=== PATIENT | male | born 1955 | race Caucasian/White ===

== ENCOUNTER 2021-08-06 08:48 | Day surgery (SDC) | payer MEDICARE ==
[2021-08-04 10:55] VITALS: BMI 23.6
[~2021-08-06 08:48] MED LIST: LACTATED RINGERS 1,000 ML IV SCH; LIDOCAINE 1% (10MG/ML) FOR IV START INTRADERMA PRN
[2021-08-06 09:46] VITALS: TEMP 97.4
[2021-08-06] MEDS ORDERED: PROPOFOL 10 MG/ML 20 ML VIAL IV ONE (11:33)
--- NOTE | 2021-08-06 11:37 | P.GSHP ---
History of Present Illness H&P Date: 08/06/21 Chief Complaint: History of colon polyp This is a 66-year-old male who presents today for colonoscopy. Patient's. History of colon polyps. His last colonoscopy was over 5 years ago. Past Medical History Past Medical History: Skin Disorder Additional Past Medical History / Comment(s): slight emphysema, nodules in fingers, History of Any Multi-Drug Resistant Organisms: None Reported Past Surgical History: Tonsillectomy Additional Past Surgical History / Comment(s): COLONOSCOPY Past Anesthesia/Blood Transfusion Reactions: Motion Sickness Smoking Status: Current every day smoker - Past Family History Father Family Medical History: Cancer Medications and Allergies Home Medications Medication Instructions Recorded Confirmed Type Ascorbic Acid [Vitamin C] 500 mg PO DAILY 10/22/15 08/06/21 History Aspirin [Adult Low Dose Aspirin EC] 81 mg PO DAILY 10/22/15 08/06/21 History Cholecalciferol [Vitamin D3] 2,000 unit PO DAILY 10/22/15 08/06/21 History Multivitamins, Thera [Multivitamin] 1 tab PO DAILY 10/22/15 08/06/21 History [place]ar-3 Fatty Acids/Fish Oil [Fish 600 mg PO DAILY 10/22/15 08/06/21 History Oil 1,000 mg Softgel] Allergies Allergy/AdvReac Type Severity Reaction Status Date / Time No Known Allergies Allergy Verified 08/04/21 10:46 Surgical - Exam Vital Signs Temp Pulse Resp BP Pulse Ox 97.4 F L 71 16 134/74 96 08/06/21 09:40 08/06/21 09:40 08/06/21 09:40 08/06/21 09:40 08/06/21 09:40 - General well developed, well nourished, no distress - Eyes PERRL - ENT normal pinna - Neck no masses - Respiratory normal expansion - Cardiovascular Rhythm: regular - Abdomen Abdomen: soft, non tender Assessment and Plan Assessment: History of colon polyps. We'll perform colonoscopy.
--- NOTE | 2021-08-06 11:55 | P.OP ---
Date of Procedure: 08/06/21 Preoperative Diagnosis: History of colon polyps Postoperative Diagnosis: Diverticulosis Procedure(s) Performed: Colonoscopy Anesthesia: MAC Surgeon: Garret Kim Pathology: none sent Condition: stable Disposition: PACU Description of Procedure: Patient's placed on the endoscopy table in the lateral position. He received IV sedation. Digital rectal exam was performed which revealed no ebonized. The prostate was symmetric without nodules. The flexible colonoscope was then placed patient anus and passed throughout the entire colon. The ileocecal valve was visualized. The cecum, ascending and transverse colon appeared normal. In the descending and sigmoid colon there was moderate diverticular changes. The scope was then brought back into the rectum and this appeared normal. The was withdrawn for patient. There is no polyps seen
[2021-08-06 12:21] VITALS: BP 142/82; PULSE 63; RESP 16
== END 2021-08-06 12:35 | disposition home or self-care (01) ==
LOC: ORWHC2ENDO 08:48
PROVIDERS: ATTEND Surgery
DX: Z12.11 Encounter for screening for malignant neoplasm of colon (principal); Z86.010 Personal history of colon polyps; K21.9 Gastro-esophageal reflux disease without esophagitis; J43.9 Emphysema, unspecified; R22.40 Localized swelling, mass and lump, unspecified lower limb; F17.210 Nicotine dependence, cigarettes, uncomplicated; L98.9 Disorder of the skin and subcutaneous tissue, unspecified; Z98.890 Other specified postprocedural states; Z79.82 Long term (current) use of aspirin
CPT/HCPCS: J2704; G0105